=== PATIENT | male | born 1995 | race Caucasian/White ===

== ENCOUNTER 2020-01-03 23:14 | Emergency (ER) | payer MEDICAID ==
[~2020-01-03] VITALS: Ht 182.9 cm; Wt 65.9 kg
[2020-01-04 00:39] VITALS: BP 118/71
== END 2020-01-04 01:54 | disposition home or self-care (01) ==
LOC: EMS 23:15
DX: K04.7 Periapical abscess without sinus (principal); F15.10 Other stimulant abuse, uncomplicated; F17.210 Nicotine dependence, cigarettes, uncomplicated; F14.90 Cocaine use, unspecified, uncomplicated; F12.90 Cannabis use, unspecified, uncomplicated

== ENCOUNTER 2020-05-19 16:03 | Inpatient (IN) | payer MEDICAID ==
[~2020-05-19 16:03] MED LIST: QUET200T PO
[2020-05-19] MEDS ORDERED: LORazepam 2 MG TABLET PO PRN (20:45)
[2020-05-19] MEDS ORDERED: HALOPERIDOL 5 MG TABLET PO PRN (20:45)
[2020-05-19] MEDS ORDERED: ZOLPIDEM TARTRATE 10 MG TABLET PO PRN (20:45)
[2020-05-19] MEDS ORDERED: INFLUENZA VIRUS VACCINE QVS 2020-21 (6MO+)/PF 60 MCG/0.5 ML SYRINGE IM ONE (22:15)
[2020-05-19 22:16] VITALS: BP 102/60
[2020-05-20 05:25] VITALS: BP 126/64
[2020-05-20 06:59] LABS: BASOPHILS % (AUTO) 1.2 % (0.0-2.0); EOSINOPHILS % (AUTO) 2.7 % (1.0-6.0); HEMATOCRIT 42.7 % (41-53); HEMOGLOBIN 14.7 g/dL (13.5-17.5); LYMPHOCYTES # (AUTO) 1.1 K/uL (1.0-4.8); LYMPHOCYTES % (AUTO) 25.1 % (22.0-44.0); MEAN CORPUSCULAR HEMOGLOBIN 31.6 pg (26.0-34.0); MEAN CORPUSCULAR HGB CONC 34.4 G/dL (31.0-37.0); MEAN CORPUSCULAR VOLUME 92 fL (80-100); MONOCYTES # (AUTO) 0.4 K/uL (0.1-1.0); MONOCYTES % (AUTO) 9.8 % (2.0-9.0); NEUTROPHILS # (AUTO) 2.6 K/uL (1.8-7.7); NEUTROPHILS % (AUTO) 61.2 % (40.0-70.0); PLATELET COUNT (AUTO) 230 K/uL (150-450); RED BLOOD CELL COUNT(AUTO) 4.64 MIL/uL (4.50-5.90); RED CELL DISTRIBUTION WIDTH 13.9 % (11.5-14.5)
[2020-05-20 07:34] LABS: ALANINE AMINOTRANSFERASE 34 U/L (12-78); ALBUMIN 3.6 g/dL (3.4-5.0); ALKALINE PHOSPHATASE 68 U/L (46-116); ANION GAP 9 mmol/L (8-16); ASPARTATE AMINOTRANSFERASE 56 U/L (15-37); BILIRUBIN,TOTAL 1.1 mg/dL (0.1-1.0); CALCIUM, TOTAL 9.2 mg/dL (8.8-10.5); CARBON DIOXIDE 27 mmol/L (22-29); CHLORIDE 105 mmol/L (98-107); CHOL/HDL RATIO 1.8 (4.2-7.3); CHOLESTEROL 170 mg/dL (131-200); FREE T4 (FREE THYROXINE) 1.35 ng/dL (0.76-1.46); GLOMERULAR FILTR. RATE CALC > 60 mL/min (>60); GLUCOSE,RANDOM 89 mg/dL (70-110); HDL CHOLESTEROL 93 mg/dL (40-60); LDL CHOL (CALC.) 69 mg/dL (0-130); SODIUM SERUM 141 mmol/L (136-145); THYROID STIMULATING HORMONE 0.45 uIU/mL (0.36-3.74); TOTAL PROTEIN, SERUM 6.8 g/dL (6.4-8.2); TRIGLYCERIDES 39 mg/dL (15-150); UREA NITROGEN, BLOOD 24 mg/dL (7-18)
[2020-05-20 08:38] LABS: HEMOGLOBIN A1C 5.1 % (3.8-5.6)
[2020-05-20] MEDS ORDERED: GuaiFENesin/D-METHORPHAN [SUGAR-FREE] 200-20MG/10 ML SYRUP UDCUP PO PRN (09:15)
[2020-05-20] MEDS ORDERED: MAG HYDROX/AL HYDROX/SIMETH ES 30 ML SUSPENSION UDCUP PO PRN (09:15)
[2020-05-20] MEDS ORDERED: LOPERAMIDE HCL 2 MG CAPSULE PO PRN (09:15)
[2020-05-20] MEDS ORDERED: ALBUTEROL SULFATE HFA 90 MCG/PUFF 8 GM INHALER IH PRN (09:15)
[2020-05-20] MEDS ORDERED: CloNIDine HCL 0.1 MG TABLET PO PRN (09:15)
[2020-05-20] MEDS ORDERED: ACETAMINOPHEN 325 MG TABLET PO PRN (09:15)
[2020-05-20] MEDS ORDERED: ONDANSETRON HCL 4 MG TABLET PO PRN (09:15)
[2020-05-20] MEDS ORDERED: NICOTINE 14 MG/24 HOUR PATCH TD PRN (09:15)
[2020-05-20] MEDS ORDERED: DOCUSATE SODIUM 100 MG CAPSULE PO PRN (09:15)
[2020-05-20] MEDS ORDERED: IBUPROFEN 400 MG TABLET PO PRN (09:15)
[2020-05-20] MEDS ORDERED: PETROLATUM,WHITE 28 GM JELLY TP PRN (09:15)
[2020-05-20] MEDS ORDERED: MAGNESIUM HYDROXIDE SUSPENSION 30 ML UDCUP PO PRN (09:15)
[2020-05-20] MEDS: QUEtiapine FUMARATE 200 MG TABLET PO SCH ×2 (11:00→20:39)
[2020-05-20] MEDS: SERTRALINE HCL 50 MG TABLET PO SCH (11:00)
[2020-05-20 16:58] VITALS: BP 120/64
[2020-05-21] MEDS: QUEtiapine FUMARATE 200 MG TABLET PO SCH ×2 (09:48→20:35)
[2020-05-21] MEDS: SERTRALINE HCL 50 MG TABLET PO SCH (09:48)
[2020-05-22] MEDS: SERTRALINE HCL 50 MG TABLET PO SCH (09:05)
[2020-05-22] MEDS: QUEtiapine FUMARATE 200 MG TABLET PO SCH ×2 (09:05→20:23)
[2020-05-23] MEDS: SERTRALINE HCL 50 MG TABLET PO SCH (08:38)
[2020-05-23] MEDS: QUEtiapine FUMARATE 200 MG TABLET PO SCH (08:38)
[2020-05-23] MEDS ORDERED: SERT50TA12 PO (09:51)
== END 2020-05-23 12:00 | disposition home or self-care (01) | DRG 750 ==
LOC: B3A 20:49
DX: F20.0 Paranoid schizophrenia (principal); D72.819 Decreased white blood cell count, unspecified; F10.10 Alcohol abuse, uncomplicated; R74.01 Elevation of levels of liver transaminase levels; F19.10 Other psychoactive substance abuse, uncomplicated; R45.851 Suicidal ideations; F99 Mental disorder, not otherwise specified; Z59.0 Homelessness; Z79.899 Other long term (current) drug therapy; Z28.21 Immunization not carried out because of patient refusal
CPT/HCPCS: 83036; 84439; 84443